=== PATIENT | female | born 1985 | race Asian ===

== ENCOUNTER 2019-09-01 02:21 | Emergency (ER) | payer BC ==
[~2019-09-01] VITALS: Ht 157.5 cm; Wt 53.1 kg
[2019-09-01 02:26] VITALS: BP 101/63
--- NOTE | 2019-09-01 02:39 | NUR ---
PT C/C "I TOOK AN PILL AND IM BLEEDING A LOT", STARTED PILL YESTERDAY GENERALIZED ABD PAIN X5ESDOM, +N/V. PT AAOX4, NO ACUTE DISTRESS NOTED. WILL CONTINUE TO MONITOR.
--- NOTE | 2019-09-01 03:16 | NUR ---
Patient discharged to home in stable condition. Written and verbal after care instructions given. Patient verbalizes understanding of instruction.
== END 2019-09-01 03:16 | disposition home or self-care (01) ==
LOC: ER 02:27
DX: O03.9 Complete or unspecified spontaneous abortion without complication (principal); Z88.2 Allergy status to sulfonamides; Z3A.00 Weeks of gestation of pregnancy not specified